=== PATIENT | female | born 1940 | race Caucasian/White ===

== ENCOUNTER 2018-06-04 15:51 | Observation (INO) ==
[2018-06-04 17:07] LABS: INFLUENZA A NEGATIVE (NEGATIVE); INFLUENZA B NEGATIVE (NEGATIVE)
--- NOTE | 2018-06-04 17:27 | Diag Imaging Result Doc PS360 ---
EXAM: CT HEAD W/O CONTRAST 06/04/2018 HISTORY: pain TECHNIQUE: This exam was performed using automated exposure control, adjustment of mA or kV according to patient size, and/or use of iterative reconstruction technique. COMMENT: There is no evidence of mass effect, bleed, abnormal extra-axial fluid collection, or hydrocephalus. The calvarium is intact. The visualized paranasal sinuses are clear. There is some periventricular white matter lucency particularly in the left frontal lobe. There are tiny lacunae present in the inferior basal ganglia region on the right. IMPRESSION: Chronic ischemic microvascular changes. No evidence of acute intracranial disease. Electronically signed by Brian Bolton 06/04/2018 5:25 PM
--- NOTE | 2018-06-04 17:44 | Diag Imaging Result Doc PS360 ---
EXAM: CHEST-2 VIEWS 06/04/2018 HISTORY: cough TECHNIQUE: PA and lateral chest COMMENT: There is an opacity between the major and minor fissures in the posterior superior right middle lobe. There is some ill-defined opacity in both lower lobes medially. There are no previous chest radiographs, however there is a previous thoracic CT of 11/27/2014, on which there was an opacity in this location. Compared with the topogram of the previous study this appears to be larger and denser. The abnormalities in the lower lobes were not present at the time of the previous study IMPRESSION: Bibasilar atelectasis versus bronchopneumonia. Enlarging mass in the right middle lobe. Electronically signed by Brian Bolton 06/04/2018 5:42 PM
[2018-06-04 18:18] LABS: BASO# 0.02 X1000 (0.0-0.2); BASO% 0.2 % (0.0-0.8); EOS# 0.01 X1000 (0.0-0.7); EOS% 0.1 % (0.0-10.0); HEMATOCRIT 42.5 % (37.0-47.0); HEMOGLOBIN 13.8 g/dL (12.0-16.0); IMM GRAN# 0.06 X1000 (0.0-0.04); IMM GRAN% 0.5 % (0.0-0.5); LYMPH# 1.57 X1000 (1.2-3.4); LYMPH% 12.6 % (20.5-51.1); MCH 31.4 PG (27-31); MCHC 32.5 g/dL (33-37); MCV 96.6 FL (81-99); MONO# 1.34 X1000 (0.11-0.59); MONO% 10.7 % (1.7-9.3); MPV 10.7 FL (7.4-10.4); NEUT% 75.9 % (42.2-75.2); PLT 126 X1000 (130-400); RDW 13.3 % (11.5-14.5)
[2018-06-04 18:32] LABS: BILIRUBIN URINE NEGATIVE (NEGATIVE); BLOOD URINE 1+ (NEGATIVE); CLARITY CLEAR (CLEAR); COLOR YELLOW; GLUCOSE URINE NEGATIVE (NEGATIVE); KETONE URINE NEGATIVE (NEGATIVE); LEUKOCYTES URINE TRACE (NEGATIVE); NITRITE URINE NEGATIVE (NEGATIVE); PROTEIN URINE TRACE mg/dL (NEGATIVE); UROBILINOGEN URINE 1 mg/dL
[2018-06-04 18:44] LABS: ALBUMIN 3.7 g/dL (3.5-5.0); CALCIUM 9.4 mg/dL (8.8-10.2); CREATININE 1.3 mg/dL (0.5-0.9); TOTAL BILIRUBIN 0.6 mg/dL (0.20-1.00); TOTAL PROTEIN 7.4 g/dL (6.3-8.3)
[2018-06-04 18:46] LABS: URINE BACTERIA 1+ /HFP; URINE CAST NONE SEEN /LPF; URINE CRYSTAL NONE SEEN /HPF; URINE EPITHELIAL CELLS <10 /HPF (<10); URINE RBC <10 /HPF (<10); URINE SOURCE CATH; URINE WBC <10 /HPF (<10); URINE YEAST NONE SEEN /HPF
[2018-06-04] MEDS ORDERED: TYLENOL PO ONE (19:30)
[2018-06-04] MEDS ORDERED: LEVAQUIN 500 MG/D5W 500 MG/100 ML IVPB IV SCH (20:33)
[2018-06-04] MEDS ORDERED: NS 3,000 ML IV ONE (20:33)
[2018-06-04 22:52] LABS: INR 1.14; PROTIME 15.2 Seconds (11.0-16.0)
[2018-06-04 22:53] LABS: PTT 34.3 Seconds (22.3-41.8)
[2018-06-05] MEDS ORDERED: NS 1,000 ML IV SCH (06:45)
[2018-06-05 12:29] VITALS: BP 158/72
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
== END 2018-06-05 12:40 | disposition home or self-care (01) ==
LOC: P.ED 15:51 → P.MEDSURG 19:46 → INTOOBSV 19:46
PROVIDERS: ATTEND Family Medicine
CPT/HCPCS: 70450; 71020; 71046; 80053; 81001; 82550; 83605; 84484; 85025; 85610; 85730; 87040; 87081; 87088; 87275; 87276; 87430; 87804; 93005; 94799; 99285; A9270; J1956; J7030